=== PATIENT | female | born 1950 | race Hispanic/Latino ===

== ENCOUNTER 2023-04-06 00:38 | Emergency (ER) | payer OTHER ==
--- OUTSIDE RECORDS SUMMARY | 2023-04-06 00:43 | XMS REPORT | Continuity of Care Document ---
:1950 Author Organization [facility] t Address [address] [place] [address] Care Team Providers Name Role Phone Rich TELLEZ, King R Primary Care Physician [phone] Eliezer Maldonado Attending Clinician Unavailable Julia VILLALPANDO Attending Clinician Unavailable Julia Bro Attending Clinician Doctor Unassigned, [place] Attending Clinician Unavailable Davon Womack DO Attending Clinician Kelsie Garcia RN Attending Clinician Unavailable Lab, [facility]ob I Attending Clinician Unavailable Deena Hodge Attending Clinician DEENA LUCIANO Attending Clinician Unavailable Payers Payer Name Policy Type Policy Number Effective Date Expiration Date S kimberly [employer] MEDICARE OUT [id number] 2019 OF NETWORK 00:00:00 Problems Condition Condition Condition Status Onset Resolution Last Treating Co mments Source Name Details Category Date Date Treatment Clinician Date Prediabete Prediabete Disease Active U nivers s s 09-02 ity of 00:00: [place] [id number] Medical Branch Smoking Smoking Disease Active Univers addiction addiction 09-02 ity of 00:00: [place] 00 Medical Branch Pure Pure Disease Active Univers hyperchole hyperchole 09-02 it y of sterolemia sterolemia [place] [facility] [place] Tachycardi Tachycardi Disease Active U nivers a a 09-02 ity of 00:00: [place] [facility] Hyperthyro Hyperthyro Disease Active U nivers idism idism 09-02 ity of 00:00: [place] [facility] [id number] Mixed Problem Common hyperlipid Spirit emia [facility] [id number] [place], [place] [id number] joint, Spirit knee, - [facility] right [facility] [id number] Atopic Problem Common dermatitis Spirit in [facility] Allergies, Adverse Reactions, Alerts Allergy Allergy Status Severity Reaction(s) Onset Inactive Treating Comm ents Source Name Type Date Date Clinician SHRIMP DRUG Active Low Rash Univers INGREDI 10-08 ity of 00:00: [place] [facility] Shrimp Propensi Active Rash Univers ty to 10-08 ity of adverse 00:00: [place] reaction [facility] Benadryl Propensi Active Swelling Univ ers Allergy ty to 09-02 ity of Deconges adverse 00:00: [place] tant reaction [facility] BENADRYL DRUG Active ITCHING Univers ALLERGY 09-02 ity of DECONGES 00:00: [place] TANT 00 [facility] diphenhy diphenhy Active Unknown Commo n dramine dramine [facility] Seafood Seafood Active Unknown Common Spirit [facility] Social History Social Habit Start Date Stop Date Quantity Comments Source Sexual orientation Univer sity of [facility] History SDNY University o f Alcohol Frequency [place] [facility] History SDNY University o f Alcohol Std Drinks [place] [facility] History [facility] University o f Alcohol Binge [place] [facility] History of Tobacco Common Spirit - Use [facility] Sex Assigned At Common Sp humberto - [facility] Exposure to 2021-09-28 2021-10-08 Not sure University of SARS-CoV-2 (event) 00:00:00 18:07:00 [facility] History of Social 2019-12-18 2019-12-18 Univers ity of function 00:00:00 00:00:00 [facility] Alcohol intake 2018-10-04 2018-10-04 Current drinker Unive rsity of 00:00:00 00:00:00 of alcohol [facility] (finding) [place] Alcohol Comment 2018-05-22 2018-05-22 occasional Universit y of 00:00:00 00:00:00 [facility] Tobacco use and 2017-03-03 2017-03-03 Smokeless tobacco Un iversity of exposure 00:00:00 00:00:00 non-user [facility] Smoking Status Start Date Stop Date Source Former Smoker 2022-08-15 00:00:00 2022-08-15 00:00:00 Common S [facility] Medications Ordered Filled Start Stop Current Ordering Indication Dosage Frequency Signature Comments Components Source Medication Medication Date Date Medication? Clinician (SIG) Name Name Fluocinolon Fluocinolon No 1{appli QD Fluocinolo e Acetonide e Acetonide 4-04 cation} ne 0.01 % 0.01 % 00:00: Acetonide 00 0.01 % Fluocinolon Fluocinolon No 1{appli QD Fluocinolo e Acetonide e Acetonide 4-04 cation} ne 0.01 % 0.01 % 00:00: Acetonide 00 0.01 % Fluocinolon Fluocinolon No 1{appli QD Fluocinolo e Acetonide e Acetonide 4-04 cation} ne 0.01 % 0.01 % 00:00: Acetonide 00 0.01 % Fluocinolon Fluocinolon No 1{appli QD Fluocinolo e Acetonide e Acetonide 4-04 cation} ne 0.01 % 0.01 % 00:00: Acetonide 00 0.01 % predniSONE 2021- No 40mg 40 mg, Univ ers (DELTASONE) 10-09 Oral, ity of tablet 40 23:00: 21:51 ONCE, 1 [place] mg [place] :00 dose, On [facility] 10/09/21 at 1800, LIU methylPREDN 2021-0 Yes [id number] Take by Univers ISolone 10-08 mouth ity of (MEDROL, 00:00: SEE-INSTRU [place] REGINALDO,) 4 mg 00 CTIONS. Medica l tablets follow Branch package directions methylPREDN 0 Yes [id number] Take by Univers ISolone 5-28 mouth ity of (MEDROL, 00:00: SEE-INSTRU [place] REGINALDO,) 4 mg 00 CTIONS. Medica l tablets follow Branch package directions ondansetron 2018- Yes [id number] 4mg Take 1 U nivers (ZOFRAN 5-24 tablet by ity of ODT) 4 mg 00:00: mouth [place] disintegrat 00 every 8 Medic al ing tablet (eight) Branch hours as needed for Nausea and Vomiting (N/V). ondansetron Yes [id number] 4mg Take 1 U nivers (ZOFRAN 5-24 tablet by ity of ODT) 4 mg 00:00: mouth [place] disintegrat 00 every 8 Medic al ing tablet (eight) Branch hours as needed for Nausea and Vomiting (N/V). ondansetron Yes [id number] 4mg Take 1 U nivers (ZOFRAN 5-24 tablet by ity of ODT) 4 mg 00:00: mouth [place] disintegrat 00 every 8 Medic al ing tablet (eight) Branch hours as needed for Nausea and Vomiting (N/V). ondansetron Yes [id number] 4mg Take 1 U nivers (ZOFRAN 5-24 tablet by ity of ODT) 4 mg 00:00: mouth [place] disintegrat 00 every 8 Medic al ing tablet (eight) Branch hours as needed for Nausea and Vomiting (N/V). ondansetron 2018-0 Yes [id number] 4mg Take 1 U nivers (ZOFRAN 5-24 tablet by ity of ODT) 4 mg 00:00: mouth [place] disintegrat 00 every 8 Medic al ing tablet (eight) Branch hours as needed for Nausea and Vomiting (N/V). ondansetron 2018-0 Yes [id number] 4mg Take 1 U nivers (ZOFRAN 5-24 tablet by ity of ODT) 4 mg 00:00: mouth [place] disintegrat 00 every 8 Medic al ing tablet (eight) Branch hours as needed for Nausea and Vomiting (N/V). ondansetron 2018-0 Yes [id number] 4mg Take 1 U nivers (ZOFRAN 5-24 tablet by ity of ODT) 4 mg 00:00: mouth [place] disintegrat 00 every 8 Medic al ing tablet (eight) Branch hours as needed for Nausea and Vomiting (N/V). ondansetron 2019-0 Yes [id number] 4mg Take 1 U nivers (ZOFRAN 5-24 tablet by ity of ODT) 4 mg 00:00: mouth [place] disintegrat 00 every 8 Medic al ing tablet (eight) Branch hours as needed for Nausea and Vomiting (N/V). ondansetron 2019-0 Yes [id number] 4mg Take 1 U nivers (ZOFRAN 5-24 tablet by ity of ODT) 4 mg 00:00: mouth [place] disintegrat 00 every 8 Medic al ing tablet (eight) Branch hours as needed for Nausea and Vomiting (N/V). ondansetron 2019-0 Yes [id number] 4mg Take 1 U nivers (ZOFRAN 5-24 tablet by ity of ODT) 4 mg 00:00: mouth [place] disintegrat 00 every 8 Medic al ing tablet (eight) Branch hours as needed for Nausea and Vomiting (N/V). benzonatate 2019-0 Yes [id number] 200mg Take 1 Univers 200 mg 1-09 capsule by ity of capsule 00:00: mouth (three) Medical times Branch daily as needed for Cough. benzonatate 2019-0 Yes [id number] 200mg Take 1 Univers 200 mg 1-09 capsule by ity of capsule 00:00: mouth (three) Medical times Branch daily as needed for Cough. benzonatate 2019-0 Yes [id number] 200mg Take 1 Univers 200 mg 1-09 capsule by ity of capsule 00:00: mouth (three) Medical times Branch daily as needed for Cough. benzonatate 2019-0 Yes [id number] 200mg Take 1 Univers 200 mg 1-09 capsule by ity of capsule 00:00: mouth 3 00 (three) Medical times Branch daily as needed for Cough. benzonatate 2019-0 Yes [id number] 200mg Take 1 Univers 200 mg 1-09 capsule by ity of capsule 00:00: mouth 3 [place] 00 (three) Medical times Branch daily as needed for Cough. benzonatate 2019-0 Yes [id number] 200mg Take 1 Univers 200 mg 1-09 capsule by ity of capsule 00:00: mouth 3 00 (three) Medical times Branch daily as needed for Cough. benzonatate Yes [id number] 200mg Take 1 Univers 200 mg 1-09 capsule by ity of capsule 00:00: mouth 3 00 (three) Medical times Branch daily as needed for Cough. benzonatate Yes [id number] 200mg Take 1 Univers 200 mg 1-09 capsule by ity of capsule 00:00: mouth 3 00 (three) Medical times Branch daily as needed for Cough. benzonatate Yes [id number] 200mg Take 1 Univers 200 mg 1-09 capsule by ity of capsule 00:00: mouth 3 00 (three) Medical times Branch daily as needed for Cough. benzonatate Yes [id number] 200mg Take 1 Univers 200 mg 1-09 capsule by ity of capsule 00:00: mouth 3 00 (three) Medical times Branch daily as needed for Cough. Vital Signs Vital Name Observation Time Observation Value Comments Source height 2022-08-15 09:20:00 60 [in_i] [facility] weight 2022-08-15 09:20:00 142.7 [lb_av] [facility] temperature 2022-08-15 09:20:00 96.1 [degF] [facility] bmi 2022-08-15 09:20:00 27.87 kg/m2 [facility] oximetry 2022-08-15 09:20:00 94 % [facility] respiratory rate 2022-08-15 09:20:00 17 /min Comm on [facility] blood pressure 2022-08-15 09:20:00 135 mm[Hg] [facility] [place] systolic [facility] blood pressure 2022-08-15 09:20:00 69 mm[Hg] [facility] diastolic [facility] height 2022-07-19 09:00:00 60 [in_i] [facility] weight 2022-07-19 09:00:00 143 [lb_av] [facility] temperature 2022-07-19 09:00:00 96.2 [degF] Common S pirit - [facility] bmi 2022-07-19 09:00:00 27.92 kg/m2 Common S pirit [facility] oximetry 2022-07-19 09:00:00 99 % Common S pirit - [facility] respiratory rate 2022-07-19 09:00:00 16 /min Comm on Spirit - [facility] blood pressure 2022-07-19 09:00:00 138 mm[Hg] Common Spirit - systolic [facility] blood pressure 2022-07-19 09:00:00 70 mm[Hg] Common [facility] - diastolic [facility] Systolic blood 2021-10-09 21:14:00 165 mm[Hg] Univer sity of pressure [facility] Diastolic blood 2021-10-09 21:14:00 96 mm[Hg] Unive rsity of [facility] Heart rate 2021-10-09 21:14:00 92 /min Universi ty [facility] [place] [facility] Body temperature 2021-10-09 21:14:00 36.61 Alis Univ ersity [facility] [place] [facility] Respiratory rate 2021-10-09 21:14:00 18 /min Univ ersity of [facility] Body weight 2021-10-09 21:14:00 [facility]504 [facility] BMI 2021-10-09 21:14:00 27.34 kg/m2 Univers ty [facility] [place] [facility] Oxygen saturation in 2021-10-09 21:14:00 99 /min University of Arterial blood by [place] [facility] Pulse oximetry Branch Systolic blood 2021-10-09 02:00:00 147 mm[Hg] Univer sity of [facility] Diastolic blood 2021-10-09 02:00:00 77 mm[Hg] Unive rsity of pressure [facility] Heart rate 2021-10-09 02:00:00 96 /min Universi ty [facility] [place] [facility] Respiratory rate 2021-10-09 02:00:00 22 /min Univ ersity of [facility] Oxygen saturation in 2021-10-09 02:00:00 95 /min University of Arterial blood by [place] Trulia radha Pulse oximetry Branch Body temperature 2021-10-08 23:08:00 36.67 Alis [facility] Body height 2021-10-08 23:08:00 152.4 cm [facility] Body weight 2021-10-08 23:08:00 63.504 kg [facility] BMI 2021-10-08 23:08:00 27.34 kg/m2 [facility] Procedures Procedure Date / Time Performed Performing Clinician Sour e CONSENT/REFUSAL FOR 2021-10-09 21:12:11 [facility] Branch TREATMENT NOTICE OF PRIVACY 2021-10-08 23:01:58 Doctor Unassigned, No [facility] PRACTICES Name [facility] Branch CONSENT/REFUSAL FOR 2021-10-08 23:01:45 [facility], [facility] Name Medical Branch TREATMENT Encounters Start End Encounter Admission Attending Care Care Encounter Source Date/Time Date/Time Type Type Clinicians Facility Department ID 2022-07-19 Outpatient Maldonado, STLMLC STLC [id number] Common 08:29:02 [facility] [id number] [facility] 2022-09-18 2022-09-18 (TEL) STLMLC STLMLC [id number] Co mmon 00:00:00 00:00:00 [facility] 2022-09-15 2022-09-15 (TEL) STLMLC STLMLC [id number] Co mmon 00:00:00 00:00:00 [facility] 2022-08-15 2022-08-15 OFFICE STLC STLC [id number] Co mmon 00:00:00 00:00:00 VISIT [facility] PT - [facility] LEVEL 4 [facility] 2022-07-19 2022-07-19 PREV VISIT STLC STLC [id number] Common 00:00:00 00:00:00 NEW AGE 67 Spi rit & OVER - [facility] 2021-10-09 2021-10-09 Emergency X Julia VILLALPANDO [facility] ERT [id number] Univers 16:16:00 17:17:00 ity of [facility] 2021-10-09 2021-10-09 Emergency Julia Villalpando [facility] [id number] Univers 16:16:00 17:17:00 Valery VICKERS [id number] i ty [facility] [id number] [facility] [id number] [facility] 084 Branch 2021-10-08 2021-10-08 Emergency X Julia VILLALPANDO [facility] ERT [id number] Univers 18:09:00 21:40:00 ity of [facility] 2021-10-08 2021-10-08 Emergency Julia Villalpando [facility] [id number] Univers 18:09:00 21:40:00 Valery VICKERS [id number] i ty [facility] [id number] [id number] [facility] 084 Branch 2021-10-08 2021-10-08 Orders Doctor FADIA [id number] Univers 00:00:00 00:00:00 Only Unassigned, ALFIE [id number] ity of [place] [facility] [id number] [place] as [phone] [facility] 009 Branch 2020-07-19 2020-07-19 Patient Vu [facility] [id number] Univers 00:00:00 00:00:00 Outreach Davon PRIMARY [id number] [facility] [id number] [id number] Nv dical 388 Branch 2020-06-04 2020-06-04 Patient Doctor FADIA [id number] Univers 00:00:00 00:00:00 Secure Msg Unassigned, ALFIE [id number] ity of [place] [facility] [id number] [place] as [id number] [facility] 019 Branch 2020-06-04 2020-06-04 Letter FADIA Garcia [id number] Univers 00:00:00 00:00:00 (Out) eKlsie JUDGE [id number] it y of HOSPITAL [id number] [place] [id number] [address] 2020-06-04 2020-06-04 Telephone Lab, [facility] [id number] Univers 00:00:00 00:00:00 [facility] Pob I Health [id number] ity of [place] [id number] [place] as Professio [phone] Nv dical nal [address] 2020-06-04 2020-06-04 Letter FADIA Garcia [id number] Univers 00:00:00 00:00:00 (Out) Kelsie MCCOYY [id number] it y of [facility] [id number] [place] [phone] [address] 2020-06-01 2020-06-01 Laboratory Lab, [facility] 1.2. [id number] Univers 17:31:12 17:51:12 Only Deena [facility] [id number] ity of [place] [id number] [place] Professio [id number] Nv dical nal [address] [place] [address] Office [address] 2020-06-01 2020-06-01 Outpatient R [facility] [id number] Univers 17:40:00 17:40:00 DEENA ity of [facility] 2020-06-01 2020-06-01 Letter Doctor LOAIZA 1.2.840.114 [id number] Univers 00:00:00 00:00:00 (Out) ChristinassALFIE heredia [id number] ity of [place] [facility] [id number] [place] as [phone] [address] Results This patient has no known results.
[2023-04-06 02:15] LABS: Absolute Lymphocytes (CBC) 3.7 K/uL (0.7-4.9); Hematocrit 41.9 % (36.0-45.0); Lymphocytes % 43.7 % (15.3-44.8); MPV 9.7 fL (7.6-11.3); Platelets 197 thou/uL (152-406)
[2023-04-06 02:23] LABS: Potassium 3.7 mEq/L (3.5-5.1); Troponin High Sensitivity 5.6 pg/mL (<58.9)
--- NOTE | 2023-04-06 04:19 | EDPHYS ---
Physician Documentation [facility] Name: Chasity Ndiaye Age: 72 yrs Sex: Female : 1950 Arrival Date: 04/06/2023 Time: 00:38 Bed 13 Private MD: ED Physician Rik See HPI: 04/06 01:59 This 72 yrs old Female presents to ER via Ambulatory with complaints of rn SAnxiety, PT STATES HER NECK FEELS VERY TIGHT IF SOMEONE IS CHOKING HER.. 02:00 The patient or guardian complains of Subjective tightening of the neck on both sides. rn The symptoms are located diffusely. Onset: The symptoms/episode began/occurred just prior to arrival. Associated signs and symptoms: Pertinent negatives: fever, headache, bladder incontinence, bowel incontinence, nausea, numbness, tingling, vomiting, weakness. The pain does not radiate. Modifying factors: The symptoms are alleviated by nothing. the symptoms are aggravated by movement, pressure. Severity of symptoms: At their worst the symptoms were mild, in the emergency department the symptoms are unchanged. The patient has not experienced similar symptoms in the past. Patient reports feeling tightness in the neck on both sides anteriorly, no difficulty breathing or swallowing. No trauma. No injury today. Reports worse with movement and palpation. No fever or recent illness. No chest pain or shortness of breath. She did not know if she was having anxiety or something else was going on but was having difficulty sleeping so came in to make sure she was okay.. Historical: - Allergies: 00:53 Benadryl; km8 - Home Meds: 00:53 None [Active]; km8 - PMHx: 00:53 None; km8 - PSHx: 00:53 plastic surgery; km8 - Immunization history:: Adult Immunizations up to date, Client reports receiving the 2nd dose of the Covid vaccine, Flu vaccine is not up to date. - Social history:: Smoking status: unknown. - Family history:: not pertinent. - Hospitalizations: : No recent hospitalization is reported. ROS: 02:00 Constitutional: Negative for fever, chills, and weight loss, Eyes: Negative for injury, rn pain, redness, and discharge, ENT: Negative for injury, pain, and discharge, Neck: Subjective tightness in the neck, no swelling, no pain Cardiovascular: Negative for chest pain, palpitations, and edema, Respiratory: Negative for shortness of breath, cough, wheezing, and pleuritic chest pain, Abdomen/GI: Negative for abdominal pain, nausea, vomiting, diarrhea, and constipation, MS/Extremity: Negative for injury and deformity, Skin: Negative for injury, rash, and discoloration, Neuro: Negative for headache, weakness, numbness, tingling, and seizure, Exam: 02:00 Constitutional: This is a well developed, well nourished patient who is awake, alert, rn and in no acute distress. Ambulatory to room without assistance. Joking and does not seem to be in distress Head/Face: Normocephalic, atraumatic. ENT: No stridor, moist mucous membranes. Neck: Trachea midline, no masses palpated, and no cervical lymphadenopathy. Supple, full range of motion without nuchal rigidity, or vertebral point tenderness. No Meningismus. Cardiovascular: Regular rate and rhythm. No pulse deficits. Respiratory: Clear bilateral breath sounds. No retractions. No wheezing. No stridor Neuro: Awake and alert, GCS 15, oriented to person, place, time, and situation. Cranial nerves II-XII grossly intact. Motor strength 5/5 in all extremities. Sensory grossly intact. Cerebellar exam normal. Normal gait. 02:10 ECG was reviewed by the Attending Physician. rn Vital Signs: 00:52 BP 163 / 87; Pulse 96; Resp 16; Temp 98.1(O); Pulse Ox 96% on R/A; Weight 63.5 kg (R); km8 Height 5 ft. 0 in. (R); Pain 0/10; 01:00 BP 174 / 80; Pulse 86; Resp 16 S; Pulse Ox 95% on R/A; km8 03:30 BP 109 / 73; Pulse 91; Resp 16; Pulse Ox 95% on R/A; 8 04:00 BP 123 / 60; Pulse 90; Resp 16; Pulse Ox 97% on R/A; km8 00:52 Body Mass Index 27.34 (63.50 kg, 152.4 cm) [facility] 00:52 Pain Scale: Adult [facility] [place] Coma Score: 00:57 Eye Response: spontaneous(4). Motor Response: obeys commands(6). Verbal Response: km8 oriented(5). Total: 15. MDM: 00:43 Patient medically screened. rn 04:16 Differential diagnosis: arthritis, cervical strain, Nathan, chronic problem, deep space rn problem, cancer, anxiety, radiation from heart. Data reviewed: vital signs, nurses notes, lab test result(s), EKG, radiologic studies, CT scan, ultrasound, and as a result, I will discharge patient. Counseling: I had a detailed discussion with the patient and/or guardian regarding the historical points, exam findings, and any diagnostic results supporting the discharge/admit diagnosis, lab results, radiology results, the need for outpatient follow up, to return to the emergency department if symptoms worsen or persist or if there are any questions or concerns that arise at home. Special discussion: I discussed with the patient/guardian in detail that at this point there is no indication for admission to the hospital. It is understood, however, that if the symptoms persist or worsen the patient needs to return immediately for re-evaluation. Based on the history and exam findings, there is no indication for further emergent testing or inpatient evaluation. I discussed with the patient/guardian the need to see the head loft worker for further evaluation of the symptoms. I discussed with the patient/guardian the need to see the ENT specialist for further evaluation of the symptoms. I discussed with the patient/guardian the need to see the primary care provider for further evaluation of the symptoms. ED course: No acute findings here in ER. No acute findings and CT of the neck or carotid Doppler. Troponin negative. EKG normal. Chest x-ray negative. No clear etiology for tightness of the neck but recommend cardiology and ENT follow-up if continues. Return precautions given. I have personally reviewed all of the results, including but not limited to blood tests and imaging deemed necessary to safely discharge this patient at this time. All results given to and printed out for patient. I personally went over all the results with the patient and answered all questions. Patient will follow-up with PCP and or specialist as discussed. Return precautions given and understood.. 04/06 00: Order name: Basic Metabolic Panel; Complete Time: rn 04/06 00: Order name: CBC with Diff; Complete Time: rn 04/06 00: Order name: NT PRO-BNP; Complete Time: rn 04/06 00: Order name: Troponin HS; Complete Time: rn 04/06 00:51 Order name: XRAY Chest (1 view) rn 04/06 00:51 Order name: CT Soft Tissue Neck W/contr rn 04/06 02:24 Order name: Carotid Artery Bilateral US rn 04/06 00:51 Order name: EKG; Complete Time: 00:51 rn 04/06 00:51 Order name: Cardiac monitoring; Complete Time: 01:35 rn 04/06 00:51 Order name: EKG - Nurse/Tech; Complete Time: 01:35 rn 04/06 00:51 Order name: IV Saline Lock; Complete Time: 01:44 rn 04/06 00:51 Order name: Labs collected and sent; Complete Time: rn 04/06 00:51 Order name: O2 Per Protocol; Complete Time: :36 rn 04/06 00:51 Order name: O2 Sat Monitoring; Complete Time: 01:36 rn EC:10 Rate is 90 beats/min. Rhythm is regular. QRS [place] is Normal. [place] interval is normal. QRS rn interval is normal. QT interval is normal. No Q waves. T waves are Normal. No ST changes noted. Clinical impression: Normal ECG. Interpreted by me. Reviewed by me. Administered Medications: 04:37 Drug: Amoxicillin-Clavulanate PO 875 mg PO once Route: PO; [facility] 04:37 Follow up: Response: Medication administered at discharge. [facility] 04:37 Drug: predniSONE PO 60 mg PO once Route: PO; [facility] 04:37 Follow up: Response: Medication administered at discharge. 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
--- NOTE | 2023-04-06 04:19 | ER ---
Nurse's Notes [facility] Name: Chasity Ndiaye Age: 72 yrs Sex: Female : 1950 Arrival Date: 04/06/2023 Time: 00:38 Bed 13 Private MD: Diagnosis: Neck pain Presentation: 04/06 00:52 Chief complaint: Patient states: feels tightness in her neck on the anterior side for km8 40 mins. Coronavirus screen: Client denies travel out of the [place] in the last 14 days. Ebola Screen: No symptoms or risks identified at this time. Initial Sepsis Screen: Does the patient meet any 2 criteria? No. Patient's initial sepsis screen is negative. Does the patient have a suspected source of infection? No. Patient's initial sepsis screen is negative. Risk Assessment: Do you want to hurt yourself or someone else? Patient reports no desire to harm self or others. Onset of symptoms was April 06, 2023 at 00:10. 00:52 Method Of Arrival: Ambulatory km8 00:52 Acuity: MARY 3 km8 Triage Assessment: 00:53 General: Appears in no apparent distress. comfortable, Behavior is cooperative, km8 appropriate for age, anxious. Pain: Denies pain. EENT: Reports "tightness around her neck". Neuro: [place]ero Agitation-Sedation Scale (RASS): 0 - Alert and Calm Level of Consciousness is awake, alert, obeys commands, Oriented to person, place, time, situation. Cardiovascular: Denies chest pain, shortness of breath, Capillary refill < 3 seconds Patient's skin is warm and dry. Respiratory: Reports "tightness around neck" Airway is patent Respiratory effort is even, unlabored, Respiratory pattern is regular, symmetrical, Onset: The symptoms/episode began/occurred just prior to arrival, the patient has mild shortness of breath Denies shortness of breath. GI: No signs and/or symptoms were reported involving the gastrointestinal system. : No signs and/or symptoms were reported regarding the genitourinary system. Derm: No signs and/or symptoms reported regarding the dermatologic system. Skin is intact, is healthy with good turgor, Skin is dry, Skin is pink, warm \\T\\ dry. normal, Skin temperature is warm. Musculoskeletal: Range of motion: intact in all extremities, Reports 'tightness around neck". Historical: - Allergies: 00:53 Benadryl; km8 - Home Meds: 00:53 None [Active]; km8 - PMHx: 00:53 None; km8 - PSHx: 00:53 plastic surgery; km8 - Immunization history:: Adult Immunizations up to date, Client reports receiving the 2nd dose of the Covid vaccine, Flu vaccine is not up to date. - Social history:: Smoking status: unknown. - Family history:: not pertinent. - Hospitalizations: : No recent hospitalization is reported. Screenin:57 [facility] ED Fall Risk Assessment (Adult) History of falling in the last 3 months, km8 including since admission No falls in past 3 months (0 pts) Confusion or Disorientation No (0 pts) Intoxicated or Sedated No (0 pts) Impaired Gait No (0 pts) Mobility Assist Device Used No (0 pt) Altered Elimination No (0 pt) Score/Fall Risk Level 0 - 2 = Low Risk Oriented to surroundings, Maintained a safe environment, Educated pt \\T\\ family on fall prevention, incl call for assistance when getting out of bed, Assessed \\T\\ reinforced patient's understanding of fall precautions. Abuse screen: Denies threats or abuse. Denies injuries from another. Nutritional screening: No deficits noted. Tuberculosis screening: No symptoms or risk factors identified. Assessment: 00:57 General: see triage notes/assessment. Cardiovascular: Denies chest pain, shortness of km8 breath, Rhythm is regular. Respiratory: Airway is patent Respiratory effort is even, unlabored, Respiratory pattern is regular, symmetrical, Breath sounds are clear bilaterally. 01:44 Reassessment: Patient appears in no apparent distress at this time. No changes from km8 previously documented assessment. Patient and/or family updated on plan of care and expected duration. Pain level reassessed. Patient is alert, oriented x 3, equal unlabored respirations, skin warm/dry/pink. 02:19 Reassessment: Patient appears in no apparent distress at this time. No changes from km8 previously documented assessment. Patient and/or family updated on plan of care and expected duration. Pain level reassessed. Patient is alert, oriented x 3, equal unlabored respirations, skin warm/dry/pink. 03:31 Reassessment: Patient appears in no apparent distress at this time. No changes from km8 previously documented assessment. Patient and/or family updated on plan of care and expected duration. Pain level reassessed. Patient is alert, oriented x 3, equal unlabored respirations, skin warm/dry/pink. 04:07 Reassessment: Patient appears in no apparent distress at this time. No changes from km8 previously documented assessment. Patient and/or family updated on plan of care and expected duration. Pain level reassessed. Patient is alert, oriented x 3, equal unlabored respirations, skin warm/dry/pink. Vital Signs: 00:52 BP 163 / 87; Pulse 96; Resp 16; Temp 98.1(O); Pulse Ox 96% on R/A; Weight 63.5 kg (R); km8 Height 5 ft. 0 in. (R); Pain 0/10; 01:00 BP 174 / 80; Pulse 86; Resp 16 S; Pulse Ox 95% on R/A; km8 03:30 BP 109 / 73; Pulse 91; Resp 16; Pulse Ox 95% on R/A; km8 04:00 BP 123 / 60; Pulse 90; Resp 16; Pulse Ox 97% on R/A; km8 00:52 Body Mass Index 27.34 (63.50 kg, 152.4 cm) km8 00:52 Pain Scale: Adult km8 [place] Coma Score: 00:57 Eye Response: spontaneous(4). Motor Response: obeys commands(6). Verbal Response: km8 oriented(5). Total: 15. ED Course: 00:42 Patient arrived in ED. [id number] 00:43 Rik See MD is Attending Physician. rn 00:52 Nicki Piña RN is Primary Nurse. km8 00:53 Triage completed. km8 00:53 Arm band placed on right wrist. km8 00:57 Patient has correct armband on for positive identification. Bed in low position. Call km8 light in reach. Side rails up X 1. Client placed on continuous cardiac and pulse oximetry monitoring. NIBP monitoring applied. Door closed. Noise minimized. 00:57 Patient maintains SpO2 saturation greater than 95% on room air. km8 01:06 XRAY Chest (1 view) In Process Unspecified. EDMS 01:15 Radiology exam delayed due to lab results not completed at this time. (BUN/Creatinine) eh4 IV insertion attempt and/or patient not having appropriate IV at this time. 01:44 Inserted saline lock: 20 gauge in right wrist, using aseptic technique. Blood collected.km8 02:52 CT Soft Tissue Neck W/contr In Process Unspecified. EDMS 03:42 Carotid Artery Bilateral US In Process Unspecified. EDMS 04:17 Inez Benton MD is Referral Physician. rn 04:37 Provided Education on: d/c teaching. km8 04:37 No provider procedures requiring assistance completed. IV discontinued, intact, km8 bleeding controlled, No redness/swelling at site. Pressure dressing applied. Administered Medications: 04:37 Drug: Amoxicillin-Clavulanate PO 875 mg PO once Route: PO; km8 04:37 Follow up: Response: Medication administered at discharge. km8 04:37 Drug: predniSONE PO 60 mg PO once Route: PO; km8 04:37 Follow up: Response: Medication administered at discharge. km8 Medication: 04:37 VIS not applicable for this client. km8 Outcome: 04:18 Discharge ordered by MD. rn 04:38 Discharged to home ambulatory, with family, km8 04:38 Condition: good 04:38 Discharge instructions given to patient, family, Instructed on discharge instructions, follow up and referral plans. medication usage, Demonstrated understanding of instructions, follow-up care, medications, Prescriptions given X 1, 04:38 Patient left the ED. km8 Signatures: Dispatcher [employer] Rik Block MD MD rn Jeffries, Jennifer j6 [place] 4 Nicki Piña RN RN km8 Corrections: (The following items were deleted from the chart) 02:20 00:53 General: Appears in no apparent distress. comfortable, Behavior is calm, km8 cooperative, appropriate for age, km8
[2023-04-06] MEDS ORDERED: AMOX/K CLAV 875 MG TAB ONE (04:41)
[2023-04-06] MEDS ORDERED: predniSONE 20 MG TAB ONE (04:41)
[2023-04-06 04:58] VITALS: TEMP 98.1
[2023-04-06 05:05] VITALS: BP 123/60; O2SAT 97
--- NOTE | 2023-04-06 20:38 | RAD REPORT ---
EXAM DESCRIPTION: CT - Soft Tissue Neck W/Contr - 04/06/2023 6:52 am CLINICAL HISTORY: 72 years Female neck tightness sensation. TECHNIQUE: Axial CT imaging of the soft tissues of the neck were performed following the administrat ion of intravenous contrast. followed by sagittal and coronal reconstructed images. The CT study is p erformed according to ALARA (as low as reasonably achievable) or ALARA/IMAGE GENTLY, with automatic a djustment of mA and/or kV according to patient size. Performed on: 04/06/2023 at 2:50 AM COMPARISON: No prior studies were available for comparison.. FINDINGS: The visualized portions of the brain and orbits are normal. The oral cavity, oropharynx and nasopharynx are normal. Some portions of the oral cavity and orophary nx are obscured by streak artifact related to the patient's dental hardware. The parapharyngeal fa t planes are preserved. The hypopharynx is unremarkable. The epiglottis and aryepiglottic folds are normal. The vallecula and pyriform sinuses are grossly nor mal. The preepiglottic fat is preserved. The thyroid, cricoid and arytenoid cartilages are normal. The region of the false and true vocal cords is normal as is the anterior commissure. The parotid and submandibular glands are grossly within normal limits. No intrinsic mass lesions are seen. . The carotid sheaths are normal bilaterally. There is trace mucosal thickening of the paranasal sinuses and inferior right mastoid air cells. No definite pathologically enlarged lymph nodes are identified The thyroid gland is normal in size and configuration. The thoracic inlet is normal. The superior mediastinum and lung apices are normal. No acute osseous abnormalities are identified. There are degenerative changes of the lower cervical s pine. No focal soft tissue abnormalities are seen. IMPRESSION: 1. No evidence of acute abnormality involving the soft tissues of the neck. 2. Trace mucosal thickening of the paranasal sinuses and inferior right mastoid air cells. 3. Degenerative changes of the lower cervical spine. Electronically signed by: Rossy Bedoya DO 04/06/2023 03:27 AM [facility] Due to temporary technical issues with the PACS/Fluency reporting system, reports are being signed by the in house radiologists without review as a courtesy to insure prompt reporting. The interpreting radiologist is fully responsible for the content of the report.
--- NOTE | 2023-04-06 20:43 | RAD REPORT ---
EXAM DESCRIPTION: RAD - Chest Single View - 04/06/2023 1:05 am CLINICAL HISTORY: Neck tightness COMPARISON: None. TECHNIQUE: XR CHEST 1 VIEW 04/06/2023 12:51 AM MECHANICAL METER TESTER FINDINGS: Cardiac silhouette is normal in size. Lungs are clear without consolidation, atelectasis, mass or edema. There is no pleural effusion. There is no pneumothorax. There are no acute osseous fin dings. IMPRESSION: Clear lungs. Electronically signed by: Lamont Sapp MD 04/06/2023 01:11 AM MECHANICAL METER TESTER Due to temporary technical issues with the PACS/Fluency reporting system, reports are being signed by the in house radiologists without review as a courtesy to insure prompt reporting. The interpreting radiologist is fully responsible for the content of the report.
--- NOTE | 2023-04-06 20:44 | RAD REPORT ---
EXAM DESCRIPTION: US - Carotid Artery Bilateral - 04/06/2023 3:40 am CLINICAL HISTORY: 72 years, Female, neck tightness COMPARISON: CTA neck performed on 04/06/2023 FINDINGS: Sonographic grayscale, color and Doppler interrogation of the carotid and vertebral arteri es was performed on 04/06/2023 at 3: 03 AM. There is very mild soft and hard plaque along the common carotid artery bifurcations and carotid bulb regions bilaterally. Diastolic velocities were not recorded. Systolic arterial velocities are as follows: RIGHT: CCA mid, 88 cm/sec ICA proximal, 45 cm/sec ICA mid, 60 cm/sec ICA distal, 86 cm/sec ECA, 186 cm/sec Vertebral, 41 cm/sec antegrade ICA/ CCA = 0.98 LEFT: CCA mid, 84 cm/sec ICA proximal, 68 cm/sec ICA mid, 77 cm/sec ICA distal, 96 cm/sec ECA, 107 cm/sec Vertebral, 49 cm/sec antegrade ICA/ CCA = 1.14 IMPRESSION: 1. Normal bilateral carotid artery ultrasound. There is no evidence of a hemodynamic ally significant stenosis. 2. Vertebral flow is antegrade bilaterally. Electronically signed by: Rossy Bedoya DO 04/06/2023 04:03 AM [employer] Due to temporary technical issues with the PACS/Fluency reporting system, reports are being signed by the in house radiologists without review as a courtesy to insure prompt reporting. The interpreting radiologist is fully responsible for the content of the report.
== END 2023-04-06 04:38 | disposition home or self-care (01) ==
LOC: ER 00:38
DX: M54.2 Cervicalgia (principal); Z88.8 Allergy status to other drugs, medicaments and biological substances
CPT/HCPCS: 85025; 80048; 36415; 84484; 83880; 70491; 71045; 93880; 99284; Q9967; J7512; 93005

== ENCOUNTER 2024-05-30 13:27 | Emergency (ER) | payer OTHER ==
[2024-05-30 14:28] LABS: SARS-CoV-2 Antigen CONTROL BLUE LINE VIS/BG OK; SARS-CoV-2 Antigen Rapid Res Negative (Negative)
[2024-05-30] MEDS ORDERED: NA CHLORIDE 0.9% 1,000 ML ONE (14:31)
[2024-05-30 14:36] LABS: Absolute Lymphocytes (CBC) 1.7 K/uL (0.7-4.9); Absolute Monocytes 0.4 K/uL (0.1-1.3); Absolute Neutrophil 1.4 K/uL (1.8-8.0); Basophils % 0.4 % (0-1.3); Eosinophils % 0.6 % (0-4.4); Hematocrit 43.5 % (36.0-45.0); Hemoglobin 14.7 g/dL (12.0-15.0); Lymphocytes % 47.1 % (15.3-44.8); MCH 31.2 pg (27.0-35.0); MCHC 33.9 g/dL (32.0-36.0); MCV 92.3 fL (80-100); MPV 10.7 fL (7.6-11.3); Monocytes % 12.4 % (3.3-12.3); Neutrophils % 39.5 % (41.7-73.7); Nucleated Red Blood Cells % 0.2 % (0-0); Platelets 156 thou/uL (152-406); RBC Red Blood Cell Count 4.72 M/uL (3.86-4.86)
[2024-05-30 14:59] LABS: Anion Gap 11.7 mEq/L (5.0-15.0); Magnesium 2.2 mg/dL (1.6-2.4); Potassium 3.7 mEq/L (3.5-5.1); Troponin High Sensitivity 7.9 pg/mL (<58.9)
--- NOTE | 2024-05-30 15:03 | RAD REPORT ---
EXAM: Chest Single View HISTORY: Congestion;Cough COMPARISON: None. FINDINGS: LUNGS/PLEURA: The lungs are clear. No pleural effusions or pneumothorax. No pulmonary edema. MEDIASTINUM: The mediastinal silhouette is within normal limits. CARDIAC: The cardiac silhouette is within normal limits. UPPER ABDOMEN: No significant abnormality. BONES: No acute abnormality. LINES/TUBES/OTHER: N/A IMPRESSION: No evidence of acute cardiopulmonary disease.
--- NOTE | 2024-05-30 15:19 | ER ---
Nurse's Notes [facility] Name: Chasity Ndiaye Age: 73 yrs Sex: Female : 1950 Arrival Date: 05/30/2024 Time: 13:27 Bed 9 Private MD: Diagnosis: Viral infection, unspecified Presentation: 05/30 13:36 Chief complaint: Patient states: fever, cough is gone, now just no appetite and ko1 persistent sweating. Coronavirus screen: At this time, the client does not indicate any symptoms associated with coronavirus-19. Ebola Screen: No symptoms or risks identified at this time. Initial Sepsis Screen: Does the patient meet any 2 criteria? No. Patient's initial sepsis screen is negative. Does the patient have a suspected source of infection? No. Patient's initial sepsis screen is negative. Risk Assessment: Do you want to hurt yourself or someone else? Patient reports no desire to harm self or others. Onset of symptoms is unknown. 13:36 Method Of Arrival: Ambulatory ko1 13:36 Acuity: MARY 4 ko1 Triage Assessment: 13:41 General: Appears in no apparent distress. Behavior is calm, cooperative, appropriate ko1 for age. Pain: Denies pain. Historical: - Allergies: 13:41 Benadryl; ko1 - Home Meds: 13:41 None [Active]; ko1 - PMHx: 13:41 None; ko1 - PSHx: 13:41 plastic surgery; ko1 - Immunization history:: Adult Immunizations up to date. - Infectious Disease History:: Denies. - Social history:: Smoking status: Patient denies any tobacco usage or history of. Screenin:00 [facility] ED Fall Risk Assessment (Adult) History of falling in the last 3 months, me1 including since admission No falls in past 3 months (0 pts) Confusion or Disorientation No (0 pts) Intoxicated or Sedated No (0 pts) Impaired Gait No (0 pts) Mobility Assist Device Used No (0 pt) Altered Elimination No (0 pt) Score/Fall Risk Level 0 - 2 = Low Risk Maintained a safe environment, Provided non-skid footwear, Hourly rounding (assess needs \T\ fall precautionary measures) done. Abuse screen: Denies threats or abuse. Nutritional screening: No deficits noted. Tuberculosis screening: No symptoms or risk factors identified. Assessment: 14:00 General: Appears in no apparent distress. well groomed, well developed, well nourished, me1 Behavior is calm, cooperative, appropriate for age, Reports fever and cough is gone, now just no appetite and persistent sweating. Pain: Denies pain. Neuro: Level of Consciousness is awake, alert, obeys commands, Oriented to person, place, time, situation, Appropriate for age. Cardiovascular: Patient's skin is warm and dry. Respiratory: Reports cough that is has resolved. Airway is patent Respiratory effort is even, unlabored, Respiratory pattern is regular, symmetrical, Breath sounds are clear bilaterally. GI: Reports anorexia. : No signs and/or symptoms were reported regarding the genitourinary system. EENT: No signs and/or symptoms were reported regarding the EENT system. Derm: Skin is intact, is healthy with good turgor, Skin is pink, warm \T\ dry. Musculoskeletal: No signs and/or symptoms reported regarding the musculoskeletal system. Vital Signs: 13:36 BP 151 / 65; Pulse 88; Resp 17; Temp 98.4; Pulse Ox 100% on R/A; ko1 14:00 BP 142 / 63; Pulse 84; Resp 16; Pulse Ox 100% ; me1 15:00 BP 144 / 67; Pulse 87; Resp 14; Temp 98.1; Pulse Ox 100% ; me1 ED Course: 13:35 Patient arrived in ED. sj2 13:36 Winifred Ureña PA-C is PHCP. sb4 13:36 Chaitanya Dowd DO is Attending Physician. sb4 13:40 Triage completed. ko1 13:41 Arm band placed on right wrist. Patient placed in an exam room, on a stretcher, on ko1 pulse oximetry, Patient notified of wait time. 13:54 Denisse Flannery, RN is Primary Nurse. me1 14:00 Patient has correct armband on for positive identification. Bed in low position. Call me1 light in reach. Side rails up X2. Provided Education on: POC. Verbalized understanding.. Client placed on continuous cardiac and pulse oximetry monitoring. NIBP monitoring applied. monitoring engineer on. Pulse ox on. NIBP on. 14:00 No provider procedures requiring assistance completed. me1 14:06 Troponin HS Sent. em1 14:06 Magnesium Sent. em1 14:06 CBC with Diff Sent. em1 14:06 Basic Metabolic Panel Sent. em1 14:06 SARS RAPID Sent. em1 14:06 Flu Sent. em1 14:06 TSH Sent. em1 14:06 Initial lab(s) drawn, by me, sent to lab. Inserted saline lock: 22 gauge in right em1 antecubital area, using aseptic technique. Blood collected. Flushed with 10 mL NS. 14:07 COVID swab sent to lab. Flu and/or RSV swab sent to lab. em1 14:43 XRAY Chest (1 view) In Process Unspecified. EDMS 15:18 Eliezer Maldonado DO is Referral Physician. sb4 15:31 IV discontinued, intact, bleeding controlled, No redness/swelling at site. Pressure me1 dressing applied. Administered Medications: 14:45 Drug: NS 0.9% IV 1000 ml IV at 1000 ml once; to be given as a bolus over 60 minutes me1 Route: IV; Rate: 1000 ml; Site: left antecubital; 15:21 Follow up: Response: No adverse reaction; IV Status: Completed infusion; IV Intake: me1 1000ml Medication: 14:00 VIS not applicable for this client. me1 Intake: 15:21 IV: 1000ml; Total: 1000ml. me1 Outcome: 15:18 Discharge ordered by MD. sb4 15:31 Discharged to home ambulatory, me1 15:31 Condition: stable 15:31 Discharge instructions given to patient, Instructed on discharge instructions, follow up and referral plans. medication usage, Demonstrated understanding of instructions, follow-up care, medications, Prescriptions given X 2, 15:32 Patient left the ED. me1 Signatures: Dispatcher [employer] Chago Khanna em1 Stella Levy, RN RN ko1 Winifred Ureña, PA-C PA-C sb4 Denisse Flannery, DEENA RN me1 Favio Barrera sj2 Corrections: (The following items were deleted from the chart) 15:20 13:36 Chief complaint: Patient states: fever, cough is gone, now just no appetite and me1 persistent sweating ko1
--- NOTE | 2024-05-30 15:19 | EDPHYS ---
Physician Documentation [facility] Name: Chasity Ndiaye Age: 73 yrs Sex: Female : 1950 Arrival Date: 05/30/2024 Time: 13:27 Bed 9 Private MD: ED Physician Chaitanya Dowd HPI: 05/30 13:47 This 73 yrs old Female presents to ER via Ambulatory with complaints of Fever, sb4 Cough. 13:47 fever, cough, congestion, decreased appetite x 10 days. began after going [place] a casino. sb4 states her cough was initially productive with green sputum but now has clear sputum. states she is constantly feeling hot and is sweating. denies any n/v/d. states her boyfriend is experiencing similar symptoms. denies any medical history or daily medications. denies any chest pain or shortness of breath. Historical: - Allergies: 13:41 Benadryl; ko1 - Home Meds: 13:41 None [Active]; ko1 - PMHx: 13:41 None; ko1 - PSHx: 13:41 plastic surgery; ko1 - Immunization history:: Adult Immunizations up to date. - Infectious Disease History:: Denies. - Social history:: Smoking status: Patient denies any tobacco usage or history of. ROS: 13:47 Abdomen/GI: Negative for abdominal pain, nausea, vomiting, diarrhea, and constipation, sb4 13:47 Constitutional: Positive for fever, malaise, poor PO intake, 13:47 Respiratory: Positive for cough, with clear sputum, 13:47 All other systems are negative, Exam: 13:47 Constitutional: This is a well developed, well nourished patient who is awake, alert, sb4 and in no acute distress. Head/Face: Normocephalic, atraumatic. Eyes: Extra-ocular motions intact. Periorbital areas with no swelling, redness, or edema. ENT: Mucous membranes moist. Cardiovascular: Regular rate and rhythm with a normal S1 and S2. Respiratory: No increased work of breathing, no retractions or nasal flaring. Abdomen/GI: Soft, non-tender, no distension. Skin: Warm, dry with normal turgor. Normal color with no rashes, no lesions, and no evidence of cellulitis. Vital Signs: 13:36 BP 151 / 65; Pulse 88; Resp 17; Temp 98.4; Pulse Ox 100% on R/A; ko1 14:00 BP 142 / 63; Pulse 84; Resp 16; Pulse Ox 100% ; me1 15:00 BP 144 / 67; Pulse 87; Resp 14; Temp 98.1; Pulse Ox 100% ; me1 MDM: 13:42 Medical Screening Exam initiated sb4 13:48 Differential diagnosis: pneumonia, bronchitis, flu, covid, viral infection, URI, sb4 anemia, ACS, dehydration. 15:17 Data reviewed: vital signs, nurses notes, lab test result(s), radiologic studies, and sb4 as a result, I will discharge patient. Counseling: I had a detailed discussion with the patient and/or guardian regarding the historical points, exam findings, and any diagnostic results supporting the discharge/admit diagnosis, the presence of at least one elevated blood pressure reading (>120/80) during this emergency department visit, lab results, radiology results, the need for outpatient follow up, for definitive care, to return to the emergency department if symptoms worsen or persist or if there are any questions or concerns that arise at home. 05/30 13:46 Order name: Basic Metabolic Panel; Complete Time: 15:00 sb4 05/30 13:46 Order name: CBC with Diff; Complete Time: 14:41 sb4 05/30 13:46 Order name: Magnesium; Complete Time: 15:00 sb4 05/30 13:46 Order name: Troponin HS; Complete Time: 15:00 sb4 05/30 13:46 Order name: SARS RAPID; Complete Time: 14:41 sb4 05/30 13:46 Order name: Flu; Complete Time: 15:07 sb4 05/30 13:50 Order name: TSH; Complete Time: 14:59 sb4 05/30 13:46 Order name: XRAY Chest (1 view); Complete Time: 15:07 sb4 05/30 13:46 Order name: Cardiac monitoring; Complete Time: 14:26 sb4 05/30 13:46 Order name: IV Saline Lock; Complete Time: 14:06 sb4 05/30 13:46 Order name: Labs collected and sent; Complete Time: 14:06 sb4 05/30 13:46 Order name: O2 Per Protocol; Complete Time: 14:26 sb4 05/30 13:46 Order name: O2 Sat Monitoring; Complete Time: 14:26 sb4 Administered Medications: 14:45 Drug: NS 0.9% IV 1000 ml IV at 1000 ml once; to be given as a bolus over 60 minutes me1 Route: IV; Rate: 1000 ml; Site: left antecubital; 15:21 Follow up: Response: No adverse reaction; IV Status: Completed infusion; IV Intake: me1 1000ml Disposition: 20:17 I was immediately available on-site in the Emergency Department for consultation in the ms3 care of the patient. Disposition Summary: 05/30/24 15:18 Discharge Ordered Notes: Location: Home sb4 Problem: new sb4 Symptoms: have improved sb4 Condition: Stable sb4 Diagnosis - Viral infection, unspecified sb4 Followup: sb4 - With: Eliezer Maldonado DO - When: 1 week - Reason: Recheck today's complaints, Continuance of care, Re-evaluation by your physician Discharge Instructions: - Discharge Summary Sheet sb4 - Viral Illness, Adult sb4 Forms: - Patient Portal Instructions sb4 - Leadership Thank You Letter sb4 Prescriptions: - Loratadine 10 mg Oral Tablet - take 1 tablet ORAL route once daily; 14 tablet; Refills: 0, Product Selection sb4 Permitted - Prednisone 20 mg Oral Tablet - take 2 tablets ORAL route once daily for 5 days; 10 tablet; Refills: 0, Product sb4 Selection Permitted Signatures: Dispatcher [employer] Chaitanya Christiansen DO DO ms3 Stella Levy, DEENA RN ko1 Winifred Ureña PA-C PA-C sb4 Denisse Flannery, RN RN me1
[2024-05-30 15:36] VITALS: O2SAT 100
[2024-05-30 15:38] VITALS: BP 144/67; TEMP 98.1
== END 2024-05-30 15:32 | disposition home or self-care (01) ==
LOC: ER 13:27
DX: B34.9 Viral infection, unspecified (principal); Z11.52 Encounter for screening for COVID-19
CPT/HCPCS: 85025; 80048; 36415; 83735; 84443; 84484; 87804 ×2; 71045; 96360; 99285; 87811; J7030